=== PATIENT | female | born 1970 | race Caucasian/White ===

== ENCOUNTER 2017-02-06 23:29 | Emergency (ER) | payer BC ==
[~2017-02-06] VITALS: Ht 172.7 cm; Wt 79.1 kg
[2017-02-06] MEDS ORDERED: BLISOVI 24 FE1 EACH PO (23:54)
[2017-02-07 01:10] VITALS: BP 140/72
== END 2017-02-07 01:10 | disposition home or self-care (01) ==
LOC: ED 23:29
DX: R07.89 Other chest pain (principal)

== ENCOUNTER 2017-05-19 15:48 | Emergency (ER) | payer BC ==
[~2017-05-19] VITALS: Ht 172.7 cm; Wt 78.6 kg
[~2017-05-19 15:48] MED LIST: BLISOVI 24 FE1 EACH PO
[2017-05-19] MEDS ORDERED: DULOXETINE60 MG PO (16:02)
[2017-05-19] MEDS ORDERED: PROBIOTIC1 EAC1 PO (16:02)
[2017-05-19] MEDS ORDERED: NEURONTIN300 MG/CAP PO (16:02)
[2017-05-19] MEDS ORDERED: PEPCID COMPLET1 EACH (16:03)
[2017-05-19] MEDS ORDERED: CARAFATE 1GM1 G (16:03)
[2017-05-19] MEDS ORDERED: NORCO 325 MG-51 TA1 PO (17:49)
[2017-05-19 18:09] VITALS: BP 159/93
== END 2017-05-19 18:12 | disposition home or self-care (01) ==
LOC: ED 15:48
DX: S09.90XA Unspecified injury of head, initial encounter (principal); S27.0XXA Traumatic pneumothorax, initial encounter; S20.211A Contusion of right front wall of thorax, initial encounter; S00.03XA Contusion of scalp, initial encounter; M54.2 Cervicalgia; W55.22XA Struck by cow, initial encounter; Y92.008 Other place in unspecified non-institutional (private) residence as the place of occurrence of the external cause; M79.7 Fibromyalgia; D64.9 Anemia, unspecified
CPT/HCPCS: J1885; L0120

== ENCOUNTER → 2018-08-21 | Outpatient (CLI) | payer BC ==
[~2018-08-21] MED LIST changes: +CARAFATE 1GM1 G; +DULOXETINE60 MG PO; +NEURONTIN300 MG/CAP PO; +NORCO 325 MG-51 TA1 PO; +PEPCID COMPLET1 EACH; +PROBIOTIC1 EAC1 PO
== END ==
LOC: RAD 09:27
DX: K76.0 Fatty (change of) liver, not elsewhere classified (principal)